=== PATIENT | male | born 1980 | race Caucasian/White ===

== ENCOUNTER 2017-06-14 02:55 | Emergency (ER) | payer SELFPAY ==
[~2017-06-14] VITALS: Ht 167.6 cm; Wt 64.0 kg
[2017-06-14] MEDS ORDERED: SODIUM CHLORIDE 0.9% 1,000 ML IV ONE (03:40)
[2017-06-14 11:31] VITALS: BP 98/53
== END 2017-06-14 11:36 | disposition home or self-care (01) ==
LOC: ER 02:55
DX: F10.129 Alcohol abuse with intoxication, unspecified (principal); F17.210 Nicotine dependence, cigarettes, uncomplicated; Y90.8 Blood alcohol level of 240 mg/100 ml or more
CPT/HCPCS: 36415; 96360; 96361; 99285; G0482; J7030; Z7610